=== PATIENT | male | born 1945 | race Two or more races ===

== ENCOUNTER 2018-05-19 16:17 | Emergency (ER) | payer OTHER, BC ==
[~2018-05-19] VITALS: Ht 177.8 cm; Wt 90.7 kg
== END 2018-05-19 20:11 | disposition home or self-care (01) ==
LOC: ER 16:17
DX: L03.012 Cellulitis of left finger (principal); S61.0 Open wound of thumb without damage to nail; X58.XXXS Exposure to other specified factors, sequela